=== PATIENT | male | born 1970 | race Caucasian/White ===

== ENCOUNTER 2018-04-24 03:30 | Inpatient (IN) | END 2018-04-27 18:56 | disposition home or self-care (01) | DRG 379 ==

== ENCOUNTER 2018-05-27 02:36 | Emergency (ER) | END 2018-05-27 05:15 | disposition home or self-care (01) ==

== ENCOUNTER 2018-06-06 08:55 | Observation (INO) | END 2018-06-07 18:03 | disposition home or self-care (01) ==

== ENCOUNTER 2018-07-01 06:46 | Emergency (ER) | END 2018-07-01 10:14 | disposition home or self-care (01) ==